=== PATIENT | male | born 1960 | race Hispanic/Latino ===

== ENCOUNTER → 2018-06-20 06:40 | Outpatient (CLI) | payer OTHER, SELFPAY | PROVIDERS: Family Provider Internal Medicine; PCP Internal Medicine | DX: Z02.89 Encounter for other administrative examinations (principal) | CPT/HCPCS: 36415 ==

== ENCOUNTER → 2018-06-29 17:31 | Outpatient (CLI) | payer OTHER, SELFPAY ==
--- NOTE | 2018-06-29 17:41 | RAD_ITS ---
STUDY: X-RAY CHEST REASON FOR EXAM: Male, 58 years old. TB check. TECHNIQUE: PA and lateral views. COMPARISON: None. FINDINGS: The lungs are clear and expanded. There is no demonstrated pleural abnormality. Normal size heart. Normal mediastinum and latisha. Normal visualized pulmonary arteries. Normal visualized aortic arch and descending thoracic aorta. Normal visualized thoracic spine. Normal visualized ribs, clavicles, and shoulders. There is no demonstrated abnormality of the visualized soft tissue structures of the upper abdomen. RAD/Chest PA and Lateral IMPRESSION: Normal x-ray examination of the chest. No evidence of active TB. Electronically Signed: Coco Douglas MD at 17:59 EST Tel , Service support ,
== END ==
PROVIDERS: Family Provider Internal Medicine; PCP Internal Medicine
DX: Z11.1 Encounter for screening for respiratory tuberculosis (principal)
CPT/HCPCS: 71046